=== PATIENT | female | born 2000 | race Caucasian/White ===

== ENCOUNTER 2020-08-28 14:33 | Inpatient (IN) ==
[2020-08-28 16:03] LABS: Urine Appearance Clear; Urine Bilirubin Negative (Negative); Urine Blood Negative (Negative); Urine Color Yellow; Urine Glucose Negative (Negative); Urine Ketones Negative (Negative); Urine Nitrite Negative (Negative); Urine Protein Negative (Negative); Urine Specific Gravity 1.004 (1.010-1.030); Urine Urobilinogen Negative (Negative)
[2020-08-28] MEDS ORDERED: Charcoal ACTIVATED 25 GM/120 ML BTL PO ONE (16:10)
[2020-08-28 16:16] LABS: HCG Pregnancy < 0.60 mIU/mL
[2020-08-28 16:24] LABS: TSH Ultra Thyroid Stim Horm 1.21 mcIU/mL (0.34-5.60)
[2020-08-28 16:45] LABS: Acetaminophen 110 mcg/mL; Alcohol, S < 10 mg/dL (<10); Salicylate < 2.50 mg/dL (<30); Urine Benzodiazepine Screen None Detected (None Detect); Urine Cannabinoids Screen None Detected (None Detect); Urine Opiates Screen None Detected (None Detect)
[2020-08-28 16:46] LABS: ALT 30 U/L (7-52); Albumin/Globulin Ratio 1.9 (1-3); Alkaline Phosphatase 46 U/L (34-104); BUN/Creatinine Ratio 13.2 (8-20); Blood Urea Nitrogen 9 mg/dL (6-24); CO2 Carbon Dioxide 18 mmol/L (22-32); Calcium 9.2 mg/dL (8.6-10.3); Chloride 106 mmol/L (101-111); EGFR African American 133.5 (>60); EGFR Non-African American 110.3 (>60); Globulin 2.7 g/dL (2-4); Glucose 109 mg/dL (70-100); Sodium 130 mmol/L (135-145); Total Protein 7.7 g/dL (6.4-8.9)
[2020-08-28 16:47] LABS: Anion Gap 6 mmol/L (2-11)
[2020-08-28 17:21] LABS: Potassium Redraw 4.1 mmol/L (3.5-5.0)
[2020-08-28] MEDS ORDERED: Al Hydrox/Mg Hydrox/Simet LIQ 30 ML UDC PO PRN (20:55)
[2020-09-01 08:22] VITALS: BP 114/74
== END 2020-09-01 14:00 | disposition home or self-care (01) | DRG 755 ==
LOC: ED 14:33 → BSU 18:36
PROVIDERS: ADMIT Psychiatry & Neurology Psychiatry; ATTEND Psychiatry & Neurology Psychiatry

== ENCOUNTER 2023-12-05 08:59 | Inpatient (IN) ==
[2023-12-05 10:03] LABS: ABS Basophils 0.1 10^3/uL (0.0-0.1); ABS Lymphocytes 1.5 10^3/uL (1.0-4.8); ABS Monocytes 1.2 10^3/uL (0.0-0.9); ABS Nucleated RBC 0.02 10^3/ul; Hemoglobin 12.7 g/dL (11.5-14.3); Lymphocyte % 11.8 %; Mean Corpuscular Hemoglobin 27.7 pg (27-33); Mean Corpuscular Hgb Conc 33.6 g/dL (31-36); Mean Corpuscular Volume 82.6 fL (80-97); Mean Platelet Volume 8.4 fL (7.5-11.2); Nucleated Red Blood Cells % 0.1 %/100WBC (0.0-0.8); Platelet Count 243 10^3/uL (150-450); White Blood Count 12.7 10^3/uL (3.8-11.8)
[2023-12-05] MEDS: Lactated Ringers 1000 ml BAG 1,000 ML IV ONE (10:36)
[2023-12-05] MEDS: cefTRIAXone 1 gm/50 mL D5W 1 GM/50 ML BAG IV ONE ×2 (10:42→12:05)
[2023-12-05 10:48] LABS: Albumin/Globulin Ratio 1.7 (1-3); Calcium 8.8 mg/dL (8.6-10.3); Creatinine, Serum 0.92 mg/dL (0.51-0.95); Globulin 2.3 g/dL (2-4); Potassium 3.7 mmol/L (3.5-5.0); Total Bilirubin 0.4 mg/dL (0.2-1.0); Total Protein 6.3 g/dL (6.4-8.9); eGFR CKD-EPI 89.7 (>60)
[2023-12-05] MEDS: Ondansetron 4 mg VIAL 2 MG/ML 2 ml VIAL IV ONE (11:23)
[2023-12-05] MEDS ORDERED: Ondansetron ODT 4 mg TAB 4 MG TAB SL PRN (11:44)
[2023-12-05] MEDS ORDERED: RIMEGEPANT SULFATE 75 MG PO PRN (11:45)
[2023-12-05] MEDS: Lactated Ringers 1000 ml BAG 1,000 ML IV SCH (12:05)
[2023-12-06 05:42] LABS: ABS Lymphocytes 1.9 10^3/uL (1.0-4.8); ABS Monocytes 1.3 10^3/uL (0.0-0.9); ABS Neutrophils 8.4 10^3/uL (1.5-7.6); Eosinophil % 0.1 %; Hematocrit 34.8 % (35-45); Hemoglobin 11.6 g/dL (11.5-14.3); Lymphocyte % 16.1 %; Mean Corpuscular Hemoglobin 27.6 pg (27-33); Mean Corpuscular Hgb Conc 33.3 g/dL (31-36); Mean Corpuscular Volume 82.9 fL (80-97); Mean Platelet Volume 8.5 fL (7.5-11.2); Platelet Count 216 10^3/uL (150-450); Red Cell Distribution Width 12.8 % (12-17); White Blood Count 11.6 10^3/uL (3.8-11.8)
[2023-12-06 06:00] LABS: Albumin 3.5 g/dL (3.2-5.2); Albumin/Globulin Ratio 1.7 (1-3); Calcium 8.5 mg/dL (8.6-10.3); Creatinine, Serum 0.75 mg/dL (0.51-0.95); Globulin 2.1 g/dL (2-4); Potassium 4.1 mmol/L (3.5-5.0); Total Bilirubin 0.3 mg/dL (0.2-1.0); Total Protein 5.6 g/dL (6.4-8.9); eGFR CKD-EPI 114.7 (>60)
[2023-12-06] MEDS: cefTRIAXone 2 gm/50 mL D5W 2 GM/50 ML BAG IV SCH (09:11)
[2023-12-06] MEDS: Lactated Ringers 1000 ml BAG 1,000 ML IV SCH (14:50)
[2023-12-07 06:24] LABS: ABS Monocytes 1.3 10^3/uL (0.0-0.9); ABS Neutrophils 6.6 10^3/uL (1.5-7.6); Eosinophil % 0.5 %; Hematocrit 33.6 % (35-45); Hemoglobin 11.4 g/dL (11.5-14.3); Lymphocyte % 20.4 %; Mean Corpuscular Hemoglobin 27.9 pg (27-33); Mean Corpuscular Hgb Conc 33.9 g/dL (31-36); Mean Corpuscular Volume 82.4 fL (80-97); Mean Platelet Volume 8.5 fL (7.5-11.2); Platelet Count 215 10^3/uL (150-450); Red Blood Count 4.07 10^6/uL (3.63-4.92)
[2023-12-07 06:41] LABS: Calcium 8.9 mg/dL (8.6-10.3); Creatinine, Serum 0.72 mg/dL (0.51-0.95); Potassium 4.2 mmol/L (3.5-5.0); eGFR CKD-EPI 120.4 (>60)
[2023-12-07 09:28] VITALS: BP 125/81
[2023-12-07] MEDS: cefTRIAXone 2 gm/50 mL D5W 2 GM/50 ML BAG IV ONE (09:54)
[2023-12-07] MEDS ORDERED: cefTRIAXone 2 GM ADDV.VIAL 2 GM in NS 0.9% 100 ml BAG 100 ML IV ONE (10:00)
== END 2023-12-07 10:43 | disposition home or self-care (01) | DRG 720 ==
LOC: ED 08:59 → EDHOLD 08:59 → SSU 16:12 → MED 12-06 18:17
PROVIDERS: ADMIT Internal Medicine; ATTEND Internal Medicine